=== PATIENT | male | born 1985 | race Two or more races ===

== ENCOUNTER 2025-10-24 08:33 | Emergency (ER) | payer BC, SELFPAY ==
[2025-10-24 08:41] VITALS: BP 145/91; PULSE 80; RESP 19; TEMP 37; O2SAT 95; BMI 38.0
--- NOTE | 2025-10-24 08:46 | XR_ITS ---
Examination: Tibia-Fibula, left, 2 views Technique: Tibia-fibula AP lateral 2 views Date and time of exam: October 24, 2025, 0909 hours INDICATIONS: Injury to the lower leg today, lower leg pain. FINDINGS: No acute fracture No dislocation No foreign body IMPRESSION: No acute fracture
--- NOTE | 2025-10-24 08:46 | XR_ITS ---
Examination: Foot, examination: Left foot 3 views TECHNIQUE: AP oblique lateral left foot 3 views Date and time: October 24, 2025, 0913 hours INDICATIONS: Patient fell today with injury to the foot, foot pain. FINDINGS: No fracture or dislocation. No foreign body IMPRESSION: No fracture or dislocation,
--- NOTE | 2025-10-24 08:46 | EDNOTE_ITS ---
Lower Extremity Injury RME/HPI General Chief Complaint: Ankle/Foot Injury Stated Complaint: Left ankle pain since 0600 Time Seen by Provider: 10/24/25 08:38 Arrival date/time: 10/24/25 08:33 Limitations: no limitations RME / HPI RME / HPI Narrative: 40-year-old male was outside when he slipped on the sidewalk striking his left ankle. Comes into the emergency department with his own crutches, concerned he may be broken. Did not hurt any other body part. Was able to brace his fall with his left arm. No head injury no loss of consciousness Related Data Previous Rx's ?Medication ?Instructions ?Recorded Phenazopyridine * (PYRIDIUM *) 200 mg PO TIDPC pain #2 8 tabs 11/11/15 IBU 800 mg tablet (ibuprofen) 800 mg PO Q6H PRN pain # 30 tabs 10/24/25 acetaminophen 500 mg tablet 1,000 mg (2 x 500 mg) PO Q 6H PRN 10/24/25 (Tylenol Extra Strength) pain #30 tabs Allergies Allergy/AdvReac Type Severity Reaction Status Date / Time NKA* Allergy Uncoded 10/24/25 08:36 Review of Systems Review of Systems Systems Reviewed: All systems reviewed, normal except as documented Constitutional Constitutional: Denies fever(s) Musculoskeletal Musculoskeletal: Reports as per HPI ED Exam General Limitations: Present no limitations General appearance: Present alert and in no apparent distress Head Head exam: Present atraumatic Eye Eye exam: Present normal appearance, PERRL and EOMI Respiratory Respiratory exam: Present normal lung sounds bilaterally Cardiovascular Cardiovascular exam: Present regular rate, normal rhythm and normal heart sounds Abdominal Exam Abdominal exam: Present soft and normal bowel sounds Extremities Exam Extremities exam: Present full ROM and tenderness (TTP to left ankle, TTP to dorsum of left foot, TTP to left fib) Back Exam Back exam: Present normal inspection and full ROM Psychiatric Psychiatric exam: Present normal affect and normal mood Skin Skin exam: Present warm, dry, intact and normal color Course Quality Measures none Orders Category Date Time Status Splint / Immobilizer STAT Care 10/24/25 09:45 Completed XR foot comp LT min 3V Stat Exams 10/24/25 08:46 Completed XR tibia fibula LT 2V Stat Exams 10/24/25 08:46 Completed Ketorolac Inj [Toradol Inj] Med 10/24/25 08:47 Discontinued 30 mg IM X1 ONE Vital Signs Vital signs: Vital Signs Temperature 98.6 F 10/24/25 08:41 Pulse Rate 80 10/24/25 08:41 Respiratory Rate 19 10/24/25 08:41 Blood Pressure 145/91 H 10/24/25 08:41 Pulse Oximetry (%) 95 10/24/25 08:41 Oxygen Delivery Method Room Air 10/24/25 08:41 PROCEDURES: Splint Fabrication: Pre-Fabricated Type: Ankle Stirrup Reason for Splint: Pain Management Site condition: Bruised and Edematous Circulation Distal to Splint: Yes Movement Distal to Splint: Yes Senation Distal to Splint: Yes Tolerance: Tolerates Well Extremity Injury, Lower Patient data External records reviewed:: [facility] previous records and None Clinical information provided by:: patient and family Social determinants that could affect healthcare access:: other (specify) (No PCP appointment in a week) Patient has the following chronic illnesses:: None How is presenting disease/condition affected by chronic disease/condition?: no chronic disease Evaluation data The following diagnostics were reviewed and interpreted by me:: radiology exam(s) Lab and/or radiology exams considered but not ordered:: Imaging of head was considered however did not strike his head Interpretation Summary: X-ray of tib-fib within normal limits x-ray of foot within normal limits Medications / Prescriptions Medications or Prescriptions considered but not ordered:: Narcotics were considered however given no fracture unlikely warranted Medication administrations:: Medication Administration History Discontinued Medications Ketorolac Tromethamine (Ketorolac Inj 30 Mg/Ml Vial) 30 mg IM X1 ONE Stop: 10/24/25 08:48 Last Admin: 10/24/25 08:56 Dose: 30 mg Documented By: LT See above Consultations Consultation(s) initiated? (list below): No Diagnosis Extremity Injury, Lower Differential Diagnosis: ankle sprain and strain, acute internal derangement of knee, fracture of femur, fracture of hip, fracture of toe and ankle fracture Most likely diagnosis given after review of the tests above:: Left ankle sprain Left leg contusion Ground-level fall Admission Indicated Admission indicated?: not indicated Admission Request Was there a request for admission?: No Disposition Plan Disposition Plan: Discharge Discharge Attestation Discharge Attestation: The patient and all family members were given an opportunity to ask questions and understood the discharge instructions. Discharge instructions specifically effects, indications for sooner follow up or return to the emergency department, and the expected course of current diagnosis. Patient condition: Stable Discharge Plan Plan Patient Disposition: HOME (Self Care) Discharge Disposition comment: Follow-up with PCP in 2 to 3 days Prescriptions/Referrals Prescriptions/Med Rec: New ibuprofen [IBU] 800 mg tablet 800 mg PO Q6H PRN (Reason: pain) Qty: 30 0RF acetaminophen [Tylenol Extra Strength] 500 mg tablet 1,000 mg PO Q6H PRN (Reason: pain) Qty: 30 0RF No Action Phenazopyridine * (PYRIDIUM *) 200 MG tablet 200 mg PO TIDPC Qty: 28 0RF Referrals: Pa Severino MD [Primary Care Provider, Family Practice] - In 1 week Problem List Clinical Impression: Left leg pain, Fall from ground level, Left ankle sprain, Foot pain, left Patient/Caregiver Discharge Instructions Education Materials: Treating Ankle Sprains Print Language: Cymraes Stand Alone Forms: Luiza Award Info., Work/School Release, Patient Portal Info Letter PA/RADIO INTERFERENCE INVESTIGATOR Supervising Physician PA/RADIO INTERFERENCE INVESTIGATOR Supervising Physician: Dr. Stewart
[2025-10-24] MEDS: KETOROLAC INJ 30 MG/ML VIAL IM (08:56)
== END 2025-10-24 10:19 | disposition home or self-care (01) ==
PROVIDERS: Emergency Provider Emergency Medicine; PCP Family Medicine
DX: S93.402A Sprain of unspecified ligament of left ankle, initial encounter (principal); S99.922A Unspecified injury of left foot, initial encounter; S89.92XA Unspecified injury of left lower leg, initial encounter; W18.30XA Fall on same level, unspecified, initial encounter
CPT/HCPCS: 73590; 73630; 96372; 99283; J1885